=== PATIENT | female | born 1960 | race Caucasian/White ===

== ENCOUNTER 2020-02-07 09:14 | Emergency (ER) | payer OTHER, SELFPAY ==
[2020-02-07 09:20] VITALS: BP 193/93; PULSE 89; RESP 14; TEMP 37; O2SAT 97; BMI 32.1
--- NOTE | 2020-02-07 09:27 | DI.RAD.S_ITS ---
PROCEDURE: XR KNEE RT 3V INDICATIONS: unable to bear weight on right leg. TECHNIQUE: 3 views of the knee were acquired. COMPARISON: None. FINDINGS: Bones: Question of small osseous fragment at the medial aspect of the lateral femoral condyle in the region of the ACL. No Segond fracture. Small osteophytes in the lateral and medial compartments. No suspicious bony lesions. Soft tissues: Small joint effusion. No suspicious soft tissue calcifications. IMPRESSION: Question of small osseous fragment at the medial aspect of the lateral femoral condyle. This raises the possibility of ACL injury. If clinically indicated consider further evaluation with MRI of the knee. Small joint effusion. Dictated by: Monty Huff M.D. on 02/07/2020 at 9:47 Approved by: Monty Huff M.D. on 02/07/2020 at 9:52
[2020-02-07 09:53] VITALS: PULSE 80; O2SAT 100
[2020-02-07 10:00] VITALS: PULSE 80; O2SAT 97
[2020-02-07 10:30] VITALS: PULSE 73; O2SAT 99
--- NOTE | 2020-02-07 11:03 | ED_ITS ---
HPI - Extremity Injury (Lower) <MONICA Tiwari - Last Filed: 02/07/20 15:34> General Chief Complaint: Extremity Injury, Lower Stated Complaint: Right knee injury, heard loud pop day after GLF Time Seen by Provider: 02/07/20 11:00 Source: patient Mode of arrival: Wheelchair Limitations: no limitations History of Present Illness HPI Narrative: 59yo female presents to the ED complaining of right knee pain for the past 2 days. She states she initially stepped off a large step from her motor home and landed on her right leg and noticed sudden onset of knee pain with some swelling. The following day she went to throw a tool into the air and felt significant pain in her right knee, she think she may have twisted her knee at that point. She reports significant swelling that has decreased with ice and elevation. She states she is unable to bear much weight on to her right leg due to the pain. She denies any previous injury to her leg or knee, denies any previous surgeries. Patient denies any other injury such as hip pain, ankle pain, foot pain, head injury, nausea, vomiting, diarrhea, calf pain, or any other concerns. She denies any DVTs. Related Data Allergies Allergy/AdvReac Type Severity Reaction Status Date / Time acetaminophen [From Roxicet] Allergy Verified 02/07/20 09:25 oxycodone [From Roxicet] Allergy Verified 02/07/20 09:25 Review of Systems <MONICA Tiwari - Last Filed: 02/07/20 15:34> Review of Systems Narrative: REVIEW OF SYSTEMS: GENERAL: Denies fever or chills. HENT: No head trauma. EYES: No double vision or vision loss. CARDIOVASCULAR: No chest pain or syncope. RESPIRATORY: No shortness of breath or cough. GASTROINTESTINAL: No nausea, vomiting, diarrhea, or constipation. GENITOURINARY: No flank pain. MUSCULOSKELETAL: Complains of right knee pain, see HPI. INTEGUMENTARY: No rash, lesions, or pruritus. NEURO: No numbness, tingling. PSYCH: No behavior or mood changes. Patient History <MONICA Tiwari - Last Filed: 02/07/20 15:34> Medical History No significant medical problems (Acute) Social History Smoking Status: Unknown if ever smoked Smoking Status: Unknown if ever smoked alcohol intake frequency: holidays/special occasions only Substance Use Type: does not use Exam <MONICA Tiwari - Last Filed: 02/07/20 15:34> Initial Vital Signs Initial Vital Signs: Vital Signs Temperature 98.6 F 02/07/20 09:20 Pulse Rate 89 02/07/20 09:20 Respiratory Rate 14 02/07/20 09:20 Blood Pressure 193/93 H 02/07/20 09:20 Pulse Oximetry 97 02/07/20 09:20 PHYSICAL EXAMINATION: GENERAL: Well groomed, alert, and cooperative. Answers questions promptly and appropriately. Vital signs noted. HENT: Normocephalic, atraumatic. EYES: Symmetrical, sclera white, no periorbital swelling. CARDIOVASCULAR: Regular rate. RESPIRATORY: Normal respiratory rate, trachea midline, airway patent. No stridor, nasal flaring or accessory muscle use. MUSCULOSKELETAL: Moderate swelling noted to right knee, no ecchymosis or erythema or lesions. Tenderness to right lateral aspect of his knee along joint line. Decreased flexion due to swelling and pain. Full extension noted. Stable knee with drawer test, negative Terry sign. Patient reports worsening pain with movement of knee and weight-bearing. Equal tone and mass bilaterally. EXTREMITIES: CMS intact. No pedal edema. SKIN: Warm, dry, soft, appropriate color for ethnicity. No lesions, rashes, or wounds. NEURO: Alert and Oriented X 3. No sensory deficits. PSYCH: Appropriate affect and mood. <Stacia Hayes DO - Last Filed: 02/15/20 07:22> Initial Vital Signs Initial Vital Signs: Vital Signs Temperature 98.6 F 02/07/20 09:20 Pulse Rate 89 02/07/20 09:20 Respiratory Rate 14 02/07/20 09:20 Blood Pressure 193/93 H 02/07/20 09:20 Pulse Oximetry 97 02/07/20 09:20 Course <MONICA Tiwari - Last Filed: 02/07/20 15:34> Course Course Narrative: Patient was given you immobilizer and crutches, patient was instructed how to use crutches appropriately. Orders Ordered: ED Orders 02/07/20 09:27 XR knee RT 3V Stat Vital Signs Vital signs: Vital Signs - 8 hr 02/07/20 09:20 02/07/20 09:53 02/07/20 10:00 Temperature 98.6 F Pulse Rate 89 80 80 Respiratory Rate 14 Blood Pressure 193/93 H Pulse Oximetry 97 100 97 02/07/20 10:30 02/07/20 11:53 Temperature Pulse Rate 73 79 Respiratory Rate 18 Blood Pressure 164/82 H Pulse Oximetry 99 100 <Stacia Hayes DO - Last Filed: 02/15/20 07:22> Orders Ordered: ED Orders 02/07/20 09:27 XR knee RT 3V Stat Vital Signs Vital signs: Vital Signs - 8 hr 02/07/20 09:20 02/07/20 09:53 02/07/20 10:00 Temperature 98.6 F Pulse Rate 89 80 80 Respiratory Rate 14 Blood Pressure 193/93 H Pulse Oximetry 97 100 97 02/07/20 10:30 02/07/20 11:53 Temperature Pulse Rate 73 79 Respiratory Rate 18 Blood Pressure 164/82 H Pulse Oximetry 99 100 MDM - Extremity Injury (Lower) <MONICA Tiwari - Last Filed: 02/07/20 15:34> Medical Records Attestation: I reviewed the patient's medical records. Lab Data Attestation: I reviewed the patient's lab results. Imaging Data Extremity x-ray #1: Radiologist's Impression: [address] [address] XRay Report Signed Patient: Rebecca Cooper#: [id number] : 2Acct:[id number] Age/Sex: 59 / FDate of Service: 02/07/20 Loc: ED Accession Number: [id number] Procedure: XR knee RT 3V Ordering Provider: Stacia Hayes D.O. PROCEDURE: XR KNEE RT 3V INDICATIONS: unable to bear weight on right leg. TECHNIQUE: 3 views of the knee were acquired. COMPARISON: None. FINDINGS: Bones: Question of small osseous fragment at the medial aspect of the lateral femoral condyle in the region of the ACL. No Segond fracture. Small osteophytes in the lateral and medial compartments. No suspicious bony lesions. Soft tissues: Small joint effusion. No suspicious soft tissue calcifications. IMPRESSION: Question of small osseous fragment at the medial aspect of the lateral femoral condyle. This raises the possibility of ACL injury. If clinically indicated consider further evaluation with MRI of the knee. Small joint effusion. Dictated by: Monty Huff M.D. on 02/07/2020 at 9:47 Approved by: Monty Huff M.D. on 02/07/2020 at 9:52 MDM Narrative Medical decision making narrative: 59-year-old female presents emergency department for knee pain. Concern for ligamentous injury such as ACL injury given history and joint effusion. Additionally, in for small fragment from lateral femoral condyle related to possible ACL injury. Patient was given a knee immobilizer and told to use only toe-touch weight- bearing, was encouraged to use crutches. Discussed the importance of follow-up with Ortho. Patient agreed to plan of care verbalized understanding. Declined pain medication at this time. Discharge Plan Departure Patient Disposition: Home Clinical Impression: Internal derangement of knee Qualifiers: Laterality: right Qualified Code(s): M23.91 - Unspecified internal derangement of right knee Discharge Date/Time: 02/07/20 11:56 Instructions: Anterior Cruciate Ligament Injury Activity Restrictions/Additional Instructions: Thank you for entrusting me with your care today. As discussed, your x-ray shows a small fragment which may be a bone fragment in your knee. This is most commonly caused by an ACL injury which is a large ligament in your knee. We have given you a knee immobilizer, please keep this on as much as possible, you may remove it briefly for showers. Additionally, we have given you crutches, do not apply your full weight to your leg until you are re-evaluated by an orthopedic. I have have referred you to an orthopedic, please call them today to schedule a follow-up appointment in the next few weeks. Return emergency department for any new or worsening symptoms such as severe pain, chest pain, shortness of breath, or any other concerns. Referrals: Brandyn Leone MD [Physician] - (Possible ACL Injury, possible lateral femoral condyle fragment) <Stacia Hayes DO - Last Filed: 02/15/20 07:22> Cosign ED Attending Cosignature Attestation: I was immediately available in the department for consultation. Documentation has been reviewed. I agree with assessment and plan.
[2020-02-07 11:53] VITALS: BP 164/82; PULSE 79; RESP 18; O2SAT 100
== END 2020-02-07 11:56 | disposition home or self-care (01) ==
PROVIDERS: Emergency Provider Nurse Practitioner
DX: M23.91 Unspecified internal derangement of right knee (principal); W18.30XA Fall on same level, unspecified, initial encounter
CPT/HCPCS: 73562; 99283

== ENCOUNTER 2021-11-03 12:21 | Emergency (ER) | payer OTHER, SELFPAY ==
[2021-11-03] VITALS (7 sets, daily range): BP systolic 142–173; BP diastolic 71–95; PULSE 81–97; RESP 15–18; TEMP 36.3–36.6; O2SAT 97–98; BMI 31.3
--- NOTE | 2021-11-03 12:45 | DI.RAD.S_ITS ---
PROCEDURE: XR CHEST 2V INDICATIONS: cough and congestion,wheezing TECHNIQUE: 2 views of the chest were acquired. COMPARISON: None. FINDINGS: Surgical changes and devices: None. Lungs and pleura: Lungs are clear. No pleural effusions or pneumothorax. Mediastinum: Mediastinal contours are normal. Heart size is normal. Bones and chest wall: No suspicious bony abnormalities. Soft tissues appear unremarkable. IMPRESSION: No acute cardiopulmonary disease process. Dictated by: Rachana Paris MD, PhD on 11/03/2021 at 13:05 Approved by: Rachana Paris MD, PhD on 11/03/2021 at 13:07
[2021-11-03] MEDS: ALBUTEROL/IPRATROPIUM 3 ML AMPUL INH (14:28)
[2021-11-03] MEDS: CODEINE/GUAIFENESIN LIQUID 5ML UDC 10 ML PO (14:48)
--- NOTE | 2021-11-03 15:09 | ED.URI ---
HPI - URI/Sore Throat <MONICA Morgan - Last Filed: 11/03/21 15:16> General Chief Complaint: Upper Respiratory Symptoms Stated Complaint: Cough 10 days Time Seen by Provider: 11/03/21 13:59 Source: patient Mode of arrival: Ambulatory History of Present Illness HPI Narrative: This is a 61-year-old female who has a history of asthma as a child, nonsmoker who presents to the emergency department complaining of cough for 10 days, increasing in frequency especially at night, nonproductive, without runny nose, fever, or wheezing. Patient endorses sensation of wheezing occasionally, denies history of COPD, or bronchitis infections. Patient is visiting from [place], denies any seasonal allergies, staying with her sister who has 2 cats and a dog, denies any history of allergies to them but she has been coughing frequently after an upper respiratory infection 1 week ago. She denies any fatigue, nausea, vomiting, or fever. Related Data Previous Rx's Medication Instructions Recorded albuterol sulfate 90 mcg/actuation 1 inh INHALATION QID PRN #6.7 g 11/03/21 aerosol inhaler codeine 10 mg-guaifenesin 200 mg/5 10 ml PO Q6H PRN #150 ml 11/03/21 mL oral liquid inhalational spacing device #1 ea 11/03/21 (LiteAire MDI Chamber) prednisone 20 mg tablet 20 mg PO DAILY #3 tab 11/03/21 Allergies Allergy/AdvReac Type Severity Reaction Status Date / Time acetaminophen [From Roxicet] Allergy Verified 11/03/21 12:41 oxycodone [From Roxicet] Allergy Verified 11/03/21 12:41 Review of Systems <MONICA Morgan - Last Filed: 11/03/21 15:16> Review of Systems Narrative: General: denies fever, chills, malaise, sweats, fatigue Head/Neck: denies headache, neck pain, dizziness Eyes: denies visual changes, eye pain Cardio: denies chest pain, palpitations, edema Respiratory: denies dyspnea, endorses frequent dry cough, denies orthopnea GI: denies abdominal pain, nausea, vomiting, or diarrhea : denies dysuria, hematuria, urinary retention, frequency or incontinence MSK: denies joint pain, muscle weakness Skin: denies rash, itching, skin lesions or other Neuro: denies numbness, tingling Patient History <MONICA Morgan - Last Filed: 11/03/21 15:16> Medical History No significant medical problems Social History Smoking Status: Unknown if ever smoked Smoking Status: Unknown if ever smoked alcohol intake frequency: holidays/special occasions only Substance Use Type: does not use Exam <MONICA Morgan - Last Filed: 11/03/21 15:16> Narrative Exam Narrative: Independently reviewed vitals signs and nursing notes. General: cooperative, comfortable, in no acute distress, well developed and well groomed Head: atraumatic, symmetrical facial expressions Neck: supple, atraumatic, without lymphadenopathy. Eyes: pupils equal round and reactive, EOMI, conjunctiva normal Nose: nares patent, no rhinorrhea Mouth/Throat: uvula midline, moist mucus membranes Cardiovascular: regular rate and rhythm, no peripheral edema, warm extremities Respiratory: normal effort, tachypnea, breath sounds are clear although overall slightly diminished, able to speak in complete sentences, no audible wheezing, stridor, or rales. No retractions or increased work of breathing. GI: abdomen soft, nontender to palpation, nondistended, no masses, no exquisite tenderness with exam, without guarding or rebound. MSK: moves all extremities, ambulatory w/steady gait, neurovascularly intact, no weakness Skin: brisk capillary refill, no rash, no erythema Neuro: normal speech and cognition, A&O x3, normal tone Psych: mental status is grossly normal, congruent mood, normal affect, pleasant and cooperative Initial Vital Signs Initial Vital Signs: Vital Signs Temperature 97.9 F 11/03/21 12:41 Pulse Rate 81 11/03/21 12:41 Respiratory Rate 15 11/03/21 12:41 Blood Pressure 173/83 H 11/03/21 12:41 Pulse Oximetry 97 11/03/21 12:41 <Stacia Hayes DO - Last Filed: 11/04/21 07:58> Initial Vital Signs Initial Vital Signs: Vital Signs Temperature 97.9 F 11/03/21 12:41 Pulse Rate 81 11/03/21 12:41 Respiratory Rate 15 11/03/21 12:41 Blood Pressure 173/83 H 11/03/21 12:41 Pulse Oximetry 97 11/03/21 12:41 Course <MONICA Morgan - Last Filed: 11/03/21 15:16> Orders Ordered: Discontinued Medications Albuterol/Ipratropium (Albuterol/Ipratropium 3 Ml Ampul) 3 ml INH NOW ONE Stop: 11/03/21 14:09 Last Admin: 11/03/21 14:28 Dose: 3 ml Documented by: TITUS Dexamethasone (Dexamethasone 10 Mg/Ml Vial) 10 mg PO NOW ONE Stop: 11/03/21 15:00 Last Admin: 11/03/21 15:13 Dose: 10 mg Documented by: LEORA Nefffenesin/Codeine Phosphate (Codeine/Guaifenesin Liquid 5ml Udc) 10 ml PO NOW ONE Stop: 11/03/21 14:09 Last Admin: 11/03/21 14:48 Dose: 10 ml Documented by: TANNER Vital Signs Vital signs: Vital Signs - 8 hr 11/03/21 12:41 11/03/21 14:18 11/03/21 14:19 Temperature 97.9 F Pulse Rate 81 97 H 90 Respiratory Rate 15 Blood Pressure 173/83 H 165/95 H Pulse Oximetry 97 98 97 11/03/21 14:29 11/03/21 14:30 11/03/21 15:00 Temperature Pulse Rate 86 91 H 93 H Respiratory Rate 18 Blood Pressure 158/77 H 142/71 H Pulse Oximetry 98 97 97 <Stacia Hayes DO - Last Filed: 11/04/21 07:58> Orders Ordered: Discontinued Medications Albuterol/Ipratropium (Albuterol/Ipratropium 3 Ml Ampul) 3 ml INH NOW ONE Stop: 11/03/21 14:09 Last Admin: 11/03/21 14:28 Dose: 3 ml Documented by: TITUS Dexamethasone (Dexamethasone 10 Mg/Ml Vial) 10 mg PO NOW ONE Stop: 11/03/21 15:00 Last Admin: 11/03/21 15:13 Dose: 10 mg Documented by: LEORA Yaoesin/Codeine Phosphate (Codeine/Guaifenesin Liquid 5ml Udc) 10 ml PO NOW ONE Stop: 11/03/21 14:09 Last Admin: 11/03/21 14:48 Dose: 10 ml Documented by: TANNER Vital Signs Vital signs: Vital Signs - 8 hr 11/03/21 12:41 11/03/21 14:18 11/03/21 14:19 Temperature 97.9 F Pulse Rate 81 97 H 90 Respiratory Rate 15 Blood Pressure 173/83 H 165/95 H Pulse Oximetry 97 98 97 11/03/21 14:29 11/03/21 14:30 11/03/21 15:00 Temperature Pulse Rate 86 91 H 93 H Respiratory Rate 18 Blood Pressure 158/77 H 142/71 H Pulse Oximetry 98 97 97 [facility] - URI/Sore Throat <Mone Ortiz [facility] - Last Filed: 11/03/21 15:16> Imaging Data Chest x-ray: Radiologist's Impression: PROCEDURE:? XR CHEST 2V ? INDICATIONS:? cough and congestion,wheezing ? TECHNIQUE:? 2 views of the chest were acquired.? ? COMPARISON:? None. ? FINDINGS:? ? Surgical changes and devices:? None.? ? Lungs and pleura:? Lungs are clear.? No pleural effusions or pneumothorax.? ? Mediastinum:? Mediastinal contours are normal.? Heart size is normal.? ? Bones and chest wall:? No suspicious bony abnormalities.? Soft tissues appear unremarkable.? ? IMPRESSION:? No acute cardiopulmonary disease process. ? ? Dictated by: Rachana Paris MD, PhD on 11/03/2021 at 13:05 ? ? Approved by: Rachana Paris MD, PhD on 11/03/2021 at 13:07 ? [facility] Narrative Medical decision making narrative: This is a 61-year-old female with history of asthma as a child who presents to the emergency department with 10-12 days of cough, states this started after a upper respiratory infection. She has had 2 COVID negative test at home, she is COVID vaccinated x3, chest x-ray today shows no acute cardiopulmonary disease process. On exam, patient had mild tachypnea the low 20s, frequent cough at least every 30 seconds, nonproductive, improved after DuoNeb with more aeration and patient's comfort. 10 mg of IV Decadron p.o., and codeine guaifenesin cough syrup, she improved after her nebulizer and was prescribed an albuterol inhaler for as needed use and codeine guaifenesin cough syrup and 3 days of prednisone to start on 11/06/2021 is still coughing. Patient lives in [place] and is visiting her sister, there are 2 cats and a dog in the house, patient denies any prior allergies to these and past. She denies any seasonal allergy symptoms as well. She has been taking guaifenesin which has been helpful for the cough. Patient is appropriate and amenable to discharge home. Vital signs are stable on repeat examination is unremarkable. Patient has been informed of results. Patient has been given strict return to ER precautions for any new or worsening symptoms. Patient understands to follow up closely with outpatient providers as instructed. Patient understands plan and agrees to discharge home. All questions and concerns answered at this time. Discharge Plan Departure Patient Disposition: Home Clinical Impression: Acute cough Upper respiratory infection Qualifiers: URI type: unspecified URI Qualified Code(s): J06.9 - Acute upper respiratory infection, unspecified Instructions: Asthma -- Adult, Cough Activity Restrictions/Additional Instructions: *You have been diagnosed with a persistent cough. This steroid you received today should last for 3 days, allowing you to get a little bit better in use the cough medications. I called in an albuterol inhaler for you with a spacer, please use this every 4 hours as needed for frequent cough, shortness of breath, or sensation of wheezing. Ibuprofen or Tylenol needed for your pain, fever. I have prescribed 3 more days of steroid if you are still coughing on 11/06/2021, start taking prednisone tabs. Please remember to stay hydrated, you can use the cough syrup before bed, hopefully this will help you sleep. Wishing you the best. *What to do: *Please continue to take your regular medications as directed. [ ] New medication prescriptions sent to your pharmacy: [ ] [ ] New medication written as a paper prescription [ ] No new medications given *Please follow up with your primary care provider in 2-3 days, call for an appointment. Let them know you were seen in the Emergency Department and that we asked that you be seen for follow-up. We will electronically transmit a record of today's note if your PCP is in our system *If you do not have a primary care provider please contact [phone] to establish care with one of the [facility] primary care providers. *Return to Emergency Department if you should have any new, worsening or concerning symptoms, such as [fever greater than 101F, chills, worsening pain, persistent vomiting or other bothersome symptoms] Prescriptions: New codeine-guaifenesin 10-200 mg/5 mL liquid 10 ml PO Q6H PRN (Reason: cough) Qty: 150 0RF albuterol sulfate 90 mcg/actuation HFA aerosol inhaler 1 inh inhalation QID PRN (Reason: shortness of breath or wheezing) Qty: 6.7 0RF (DME) Lite[employer]ire MDI Chamber Spacer See Rx Instructions .Route Qty: 1 0RF Rx Instructions: As directed prednisone 20 mg tablet 20 mg PO DAILY Qty: 3 0RF Rx Instructions: Start 11/06/2021 if still coughing Referrals: Miscellaneous,Doctor, [Primary Care Provider] - <Stacia Hayes DO - Last Filed: 11/04/21 07:58> Cosign ED Attending Cosatiyaature Attestation: I was immediately available in the department for consultation. Documentation has been reviewed. I agree with assessment and plan.
[2021-11-03] MEDS: DEXAMETHASONE 10 MG/ML VIAL PO (15:13)
== END 2021-11-03 15:22 | disposition home or self-care (01) ==
PROVIDERS: Emergency Provider Nurse Practitioner Critical Care Medicine
DX: J06.9 Acute upper respiratory infection, unspecified (principal); R05.9 Cough, unspecified
CPT/HCPCS: 71046; 94640; 99283; J1100